=== PATIENT | female | born 1985 | race American Indian/Alaskan Native ===

== ENCOUNTER 2017-06-12 18:18 | Emergency (ER) | payer OTHER ==
[2017-06-12 18:32] VITALS: BMI 32.5
[2017-06-12 18:56] VITALS: BP 118/82; PULSE 81
[2017-06-12 18:57] VITALS: TEMP 98.3
--- NOTE | 2017-06-12 19:45 | PDOC ---
Attending Attestation - HPI HPI: 06/12/17 20:02 The patient is a 31 year old female, with a significant past medical history of asthma, who presents to the emergency department with, one day of chest pain. She reports both a cough and cold. She reports her left sternal border pain to worsen when she breathes and upon touch. Documentation prepared by Lance Arreaga, acting as medical technical writer for Jabier Buckner MD. <Lance Arreaga - Last Filed: 06/12/17 20:02> - Resident Resident Name: Figueroa Wilkins - ED Attending Attestation I have performed the following: I have examined & evaluated the patient, The case was reviewed & discussed with the resident, I agree w/resident's findings & plan, Exceptions are as noted - Physicial Exam PE: 06/12/17 20:22 Patient is awake and alert, with normal and stable vital signs, without evidence respiratory distress. nc, atr cta rrr + Reproducible left parasternal chest wall tenderness to palpation No lower extremity edema No rash - Medical Decision Making 06/12/17 20:23 Patient is a well-appearing 31-year-old female who presents to the ER with mild cough and shortness of breath associated with left-sided chest wall pain. In the ER, patient is afebrile, with normal stable vital signs. Physical evaluation reveals a patient with clear lungs and no evidence of respiratory distress with reproducible left parasternal tenderness to palpation. Patient is PERC negative. I do not suspect ACS at this time. We'll obtain chest x-ray to rule out pneumothorax versus infiltrate. We'll administer NSAIDs. Likely discharge. <Jabier Buckner - Last Filed: 06/12/17 20:24>
[2017-06-12] MEDS ORDERED: IBUPROFEN 400 MG TABLET (FP) PO ONE ×2 (19:49→20:02)
--- NOTE | 2017-06-12 19:59 | PDOC ---
History of Present Illness - General Chief Complaint: Chest Pain Stated Complaint: CHEST PAIN Time Seen by Provider: 06/12/17 19:30 History Source: Patient Exam Limitations: No Limitations - History of Present Illness Initial Comments: 06/12/17 19:51 Patient is a 31F with history of asthma here today complaining of chest pain for 24 hours. Patient reports having cough and cold for the past several days. The pain is worse with palpation and inspiration. It is located along the left sternal border. The patient is and gave 8 months ago, has not had any bloody discharge or breast discomfort. Is not taking any contraception or estrogen. No leg swelling. No recent surgery or trauma. No fevers, chills, nausea, vomiting, abdominal pain or pain with urination. Patient has had issues with hair thinning, has had her thyroid tested recently and it was normal. Past History - Past Medical History Allergies/Adverse Reactions: Allergies Allergy/AdvReac Type Severity Reaction Status Date / Time Penicillins Allergy Severe Hives Verified 06/12/17 18:32 Home Medications: Ambulatory Orders Fluticasone/Salmeterol [Advair 250-50 Diskus] 1 each IH DAILY 02/13/16 Asthma: Yes Cancer: No Cardiac Disorders: No COPD: No Diabetes: No HTN: No Seizures: No Thyroid Disease: No - Immunization History Immunization Up to Date: Yes - Suicide/Smoking/Psychosocial Hx Smoking Status: No Smoking History: Never smoked Have you smoked in the past 12 months: No Number of Cigarettes Smoked Daily: 0 Cigars Per Day: 0 'Breaking Loose' booklet given: 08/27/13 Hx Alcohol Use: No Drug/Substance Use Hx: No Substance Use Type: None Hx Substance Use Treatment: No Review of Systems - Review of Systems Comments:: 06/12/17 20:04 GENERAL/CONSTITUTIONAL: No fever or chills. No weakness. HEAD, EYES, EARS, NOSE AND THROAT: No change in vision. No sore throat. CARDIOVASCULAR: Positive for chest pain. Negative for shortness of breath. RESPIRATORY: No cough, wheezing, or hemoptysis. GASTROINTESTINAL: No nausea, vomiting, diarrhea or constipation. GENITOURINARY: No dysuria, frequency, or change in urination. SKIN: No rash NEUROLOGIC: No headache, vertigo, loss of consciousness, or change in strength/ sensation. ENDOCRINE: No increased thirst. No abnormal weight change ALLERGIC/IMMUNOLOGIC: No hives or skin allergy. *Physical Exam - Vital Signs Last Vital Signs Temp Pulse Resp BP Pulse Ox 98.3 F 81 18 118/82 100 06/12/17 18:57 06/12/17 18:55 06/12/17 18:55 06/12/17 18:55 06/12/17 18:55 - Physical Exam Comments: 06/12/17 20:05 GENERAL: Awake, alert, and fully oriented, in no acute distress HEAD: No signs of trauma, normocephalic, atraumatic, thinning hair EYES: PERRLA, EOMI, sclera anicteric, conjunctiva clear ENT: Auricles normal inspection, hearing grossly normal, nares patent, oropharynx clear without exudates. Moist mucosa LUNGS: No distress, speaks full sentences, clear to auscultation bilaterally L BREAST: No erythema, no mass, no discharge. CHEST: Tender to palpation along left sternal border, no rash. HEART: Regular rate and rhythm, normal S1 and S2, no murmurs, rubs or gallops, peripheral pulses normal and equal bilaterally. ABDOMEN: Soft, nontender, normoactive bowel sounds. No guarding, no rebound. No masses EXTREMITIES: Normal inspection, Normal range of motion, no edema. No clubbing or cyanosis. NEUROLOGICAL: Cranial nerves II through XII grossly intact. Normal speech, normal gait, no focal sensorimotor deficits SKIN: Warm, Dry, normal turgor, no rashes or lesions noted. ED Treatment Course - RADIOLOGY Radiology Studies Ordered: Category Date Time Status CHEST PA & LAT [RAD] Stat Radiology 06/12/17 19:48 Ordered Medical Decision Making - Medical Decision Making 06/12/17 20:08 31F here today with chest pain. Vital signs normal and stable. PERC negative. Chest pain is very atypical. Believe chest pain is secondary to coughing. Will evaluate with upreg, ekg, chest x-ray. EKG shows normal sinus rhythm, normal rate, normal axis, normal QTc, OH, QRS intervals. No st elevations/depressions. No t-wave abnormalities. 06/12/17 20:35 Laboratory Tests 06/12/17 19:59 Urine HCG, Qual Negative CXR shows no infiltrate, signs of fluid overload, or other acute cardiopulmonary process. 06/12/17 21:21 Discharged with PCP follow up. *DC/Admit/Observation/Transfer Diagnosis at time of Disposition: Atypical chest pain - Discharge Dispostion Disposition: HOME Condition at time of disposition: Good Admit: No - Referrals - Patient Instructions Printed Discharge Instructions: DI for Atypical Chest Pain Additional Instructions: Please return if you have any new, worsening or concerning symptoms. Please follow-up with your primary care physician next week. - Post Discharge Activity
--- NOTE | 2017-06-13 10:30 | EKG ---
Test Reason : Blood Pressure : / mmHG Vent. Rate : 074 BPM Atrial Rate : 074 BPM P-R Int : 152 ms QRS Dur : 074 ms QT Int : 380 ms P-R-T Axes : 003 059 041 degrees QTc Int : 421 ms NORMAL SINUS RHYTHM NORMAL ECG WHEN COMPARED WITH ECG OF 16-FEB-2015 02:32, NO SIGNIFICANT CHANGE WAS FOUND BASELINE ARTIFACT Confirmed by ELLI TALBERT MD ([id number]) on 06/13/2017 10:30:30 AM Referred By: Confirmed By:ELLI TALBERT MD
== END 2017-06-12 21:04 | disposition home or self-care (01) ==
LOC: JER 18:18
DX: R07.89 Other chest pain (principal); J45.909 Unspecified asthma, uncomplicated
CPT/HCPCS: 71020-TC; 84703; 93005; 93010; 99283-25

== ENCOUNTER 2017-10-17 15:58 | Emergency (ER) | payer OTHER ==
[2017-10-17 16:09] VITALS: BP 123/79; PULSE 83; TEMP 99; BMI 30.2
[2017-10-17] MEDS ORDERED: predniSONE 20 MG TABLET (UD) PO ONE (16:25)
[2017-10-17] MEDS ORDERED: ALBUTEROL SO4 2.5/IPRATROPIUM 0.5 INH SOL 3 ML VIAL.NEB. NEB ONE ×2 (16:26→16:30)
[2017-10-17] MEDS ORDERED: predniSONE 20 MG TABLET (UD) ONE (16:28)
--- NOTE | 2017-10-17 16:39 | PDOC ---
History of Present Illness - General Chief Complaint: RX Refill Stated Complaint: RX REFILLS Time Seen by Provider: 10/17/17 16:11 History Source: Patient - History of Present Illness Associated Symptoms: reports: cough. denies: fever/chills, loss of appetite, malaise, nausea/vomiting, shortness of breath, syncope Past History - Travel Close contact w/someone who was outside of country & ill: No - Past Medical History Allergies/Adverse Reactions: Allergies Allergy/AdvReac Type Severity Reaction Status Date / Time Penicillins Allergy Severe Hives Verified 10/17/17 16:09 Home Medications: Ambulatory Orders Benzonatate [Tessalon Pearls -] 100 mg PO TID #21 capsule 10/17/17 Fluticasone/Salmeterol [Advair 250-50 Diskus] 1 each IH BID 30 Days #1 blst.w.dev 10/17/17 Prednisone [Deltasone] 20 mg PO DAILY 4 Days #6 tablet 10/17/17 Asthma: Yes Cancer: No Cardiac Disorders: No COPD: No Diabetes: No HTN: No Seizures: No Thyroid Disease: No - Immunization History Immunization Up to Date: Yes - Suicide/Smoking/Psychosocial Hx Smoking Status: No Smoking History: Never smoked Have you smoked in the past 12 months: No Number of Cigarettes Smoked Daily: 0 Cigars Per Day: 0 'Breaking Loose' booklet given: 08/27/13 Hx Alcohol Use: No Drug/Substance Use Hx: No Substance Use Type: None Hx Substance Use Treatment: No Review of Systems - Review of Systems Is the patient limited Nepalese proficient: No Constitutional: No: Chills, Fever Respiratory: Yes: Cough, Wheezing, Productive cough. No: Shortness of Breath Cardiac (ROS): No: Chest Pain ABD/GI: No: Abdominal Distended, Nausea, Vomiting, Indigestion Musculoskeletal: No: Back Pain Neurological: No: Headache, Numbness, Paresthesia *Physical Exam - Vital Signs Last Vital Signs Temp Pulse Resp BP Pulse Ox 99.0 F 83 18 123/79 100 10/17/17 16:06 10/17/17 16:06 10/17/17 16:06 10/17/17 16:06 10/17/17 16:06 - Physical Exam General Appearance: Yes: Nourished, Appropriately Dressed Neck: positive: Supple Respiratory/Chest: positive: Wheezing Cardiovascular: positive: Regular Rhythm, Regular Rate, S1, S2 Gastrointestinal/Abdominal: positive: Normal Bowel Sounds, Soft Extremity: positive: Normal Capillary Refill Integumentary: positive: Normal Color Neurologic: positive: mapping editor II-XII NML intact, Fully Oriented, Alert ED Treatment Course - Medications Given in the ED: ED Medications Discontinued Medications Generic Name Dose Route Start Last Admin Trade Name Cydney PRN Reason Stop Dose Admin Albuterol/Ipratropium 1 amp 10/17/17 16:26 10/17/17 16:31 Duoneb - NEB 10/17/17 16:27 1 amp ONCE ONE Administration Prednisone 60 mg 10/17/17 16:25 10/17/17 16:29 Deltasone - PO 10/17/17 16:26 60 mg ONCE ONE Administration Medical Decision Making - Medical Decision Making 10/17/17 16:38 32y/o F with h/o asthma--denies ETT or prior hospitalization present with cough and wheezing X 3 days, requesting Rx for Advair exam consistent with wheeze and bilateral. Minimalize and prednisone 60 mg *DC/Admit/Observation/Transfer Diagnosis at time of Disposition: Asthma exacerbation Qualifiers: Asthma severity: mild Asthma persistence: unspecified Qualified Code(s): J45.901 - Unspecified asthma with (acute) exacerbation - Discharge Dispostion Disposition: HOME Condition at time of disposition: Stable Admit: No - Prescriptions Prescriptions: Benzonatate [Tessalon Pearls -] 100 mg PO TID #21 capsule Fluticasone/Salmeterol [Advair 250-50 Diskus] 1 each IH BID 30 Days #1 blst.w.dev Prednisone [Deltasone] 20 mg PO DAILY 4 Days #6 tablet - Referrals Referrals: Riley Brothers MD [Primary Care Provider] - - Patient Instructions Printed Discharge Instructions: Asthma -- Adult - Post Discharge Activity
== END 2017-10-17 16:57 | disposition home or self-care (01) ==
LOC: JERFT 15:58
PROC: 3E0F7GC Introduction of Other Therapeutic Substance into Respiratory Tract, Via Natural or Artificial Opening (ICD-10-PCS; principal; 2017-10-17)
DX: J45.901 Unspecified asthma with (acute) exacerbation (principal)
CPT/HCPCS: 94640; 99281-25; J7620

== ENCOUNTER 2017-10-24 19:53 | Emergency (ER) | payer OTHER ==
[2017-10-24 20:02] VITALS: BP 116/53; PULSE 95; TEMP 98.7; BMI 29.7
--- NOTE | 2017-10-24 20:45 | PDOC ---
History of Present Illness - General Chief Complaint: Cold Symptoms Stated Complaint: S.O.B Time Seen by Provider: 10/24/17 20:20 History Source: Patient Exam Limitations: No Limitations - History of Present Illness Initial Comments: 10/24/17 22:20 This is a 32-year-old woman past medical history of asthma who presents emergency departments with moist cough for the past one week. Patient states she was seen and evaluated here and given a refill on her prescriptions but has not improved after taking those medications. She has not seen her primary doctor for this complaint. She denies any fevers, chills, shortness of breath, nausea, vomiting, chest pain. Her son is being evaluated for similar symptoms at this time. Past History - Past Medical History Allergies/Adverse Reactions: Allergies Allergy/AdvReac Type Severity Reaction Status Date / Time Penicillins Allergy Severe Hives Verified 10/24/17 20:00 Home Medications: Ambulatory Orders Albuterol 0.083% Nebulizer Rukhsana [Ventolin 0.083% Nebulizer Soln -] 1 neb NEB Q4H #90 vial 10/24/17 Salmeterol/Fluticasone [Advair 100Mcg/50Mcg -] 1 inh PO BID 10/24/17 Asthma: Yes Cancer: No Cardiac Disorders: No COPD: No Diabetes: No HTN: No Seizures: No Thyroid Disease: No - Immunization History Immunization Up to Date: Yes - Suicide/Smoking/Psychosocial Hx Smoking Status: No Smoking History: Never smoked Have you smoked in the past 12 months: No Number of Cigarettes Smoked Daily: 0 Cigars Per Day: 0 'Breaking Loose' booklet given: 08/27/13 Hx Alcohol Use: No Drug/Substance Use Hx: No Substance Use Type: None Hx Substance Use Treatment: No Respiratory Specific PMHX - Complaint Specific PMHX Bronchitis: Yes Pulmonary Embolus: No TB (Tuberculosis): No Review of Systems - Review of Systems Able to Perform ROS?: Yes Is the patient limited Turkmen proficient: No Constitutional: No: Symptoms Reported HEENTM: No: Symptoms Reported Respiratory: Yes: See HPI Cardiac (ROS): No: Symptoms Reported ABD/GI: No: Symptoms Reported : No: Symptoms Reported Musculoskeletal: No: Symptoms Reported Integumentary: No: Symptoms Reported Neurological: No: Symptoms reported Endocrine: No: Symptoms Reported Hematologic/Lymphatic: No: Symptoms Reported *Physical Exam - Vital Signs Last Vital Signs Temp Pulse Resp BP Pulse Ox 98.7 F 95 H 20 116/53 100 10/24/17 20:00 10/24/17 20:00 10/24/17 20:00 10/24/17 20:00 10/24/17 20:00 - Physical Exam General Appearance: Yes: Appropriately Dressed. No: Apparent Distress HEENT: positive: Normal ENT Inspection Neck: positive: Trachea midline, Supple Respiratory/Chest: positive: Lungs Clear, Normal Breath Sounds. negative: Respiratory Distress, Accessory Muscle Use Cardiovascular: positive: Regular Rhythm, Regular Rate. negative: Murmur Gastrointestinal/Abdominal: positive: Normal Bowel Sounds, Soft. negative: Tender Musculoskeletal: positive: Normal Inspection. negative: CVA Tenderness Extremity: positive: Normal Inspection Integumentary: positive: Normal Color, Dry, Warm Neurologic: positive: Alert, Normal Response Medical Decision Making - Medical Decision Making 10/24/17 22:00 A/P: 32-year-old female history of asthma presents with moist cough for one week Respirations even and unlabored. Speaking full sentences. Lungs clear to auscultation bilaterally Patient is requesting chest x-ray at this time. I will give patient DuoNeb's 3 and will get a chest x-ray. 10/24/17 22:21 Wet read of chest x-ray by me: Angles clear. Cardiomegaly present. No focal infiltrates or consolidations noted. No significant change from chest x-ray done on 06/12/17 I discussed the physical exam findings, ancillary test results and final diagnoses with the patient. I answered all of the patient's questions. The patient was satisfied with the care received and felt comfortable with the discharge plan and treatment plan. The patient will call her doctor within 96 hours to arrange follow-up and will return to the Emergency Department with any new, persistent or worsening symptoms. *DC/Admit/Observation/Transfer Diagnosis at time of Disposition: Cough - Discharge Dispostion Disposition: HOME Condition at time of disposition: Fair Decision to Admit order: No - Prescriptions Prescriptions: Albuterol 0.083% Nebulizer Rukhsana [Ventolin 0.083% Nebulizer Soln -] 1 neb NEB Q4H #90 vial - Referrals Referrals: Riley Brothers MD [Primary Care Provider] - - Patient Instructions Additional Instructions: Rest, drink lots of fluids: Teas, water, soups, Pedialyte Saltwater gargles Steamy showers/seem to face break up mucus Avoid contact with others until fevers and cough resolved Lots of handwashing and good hygiene Continue [id number] medications for symptomatic relief Tylenol or Motrin for fever and pain Followup with private physician in one to 2 days as needed Return to emergency department for worsened symptoms, fevers, dehydration - Post Discharge Activity
[2017-10-24] MEDS: ALBUTEROL SO4 2.5/IPRATROPIUM 0.5 INH SOL 3 ML VIAL.NEB. NEB SCH ×4 (20:56→21:45)
[2017-10-24] MEDS ORDERED: ALBUTEROL SO4 2.5/IPRATROPIUM 0.5 INH SOL 3 ML VIAL.NEB. NEB ONE (21:42)
== END 2017-10-24 22:09 | disposition home or self-care (01) ==
LOC: JERFT 19:53
PROC: 3E0F7GC Introduction of Other Therapeutic Substance into Respiratory Tract, Via Natural or Artificial Opening (ICD-10-PCS; principal; 2017-10-24)
PROC: 3E0F7GC Introduction of Other Therapeutic Substance into Respiratory Tract, Via Natural or Artificial Opening (ICD-10-PCS; 2017-10-24)
PROC: 3E0F7GC Introduction of Other Therapeutic Substance into Respiratory Tract, Via Natural or Artificial Opening (ICD-10-PCS; 2017-10-24)
PROC: 3E0F7GC Introduction of Other Therapeutic Substance into Respiratory Tract, Via Natural or Artificial Opening (ICD-10-PCS; 2017-10-24)
DX: J45.909 Unspecified asthma, uncomplicated (principal)
CPT/HCPCS: 71046-TC-FY; 84703; 94640; 99281-25; J7620

== ENCOUNTER 2017-11-10 19:59 | Emergency (ER) | payer OTHER ==
--- NOTE | 2017-11-10 20:24 | PDOC ---
Rapid Medical Evaluation Time Seen by Provider: 11/10/17 20:22 Medical Evaluation: Allergies Allergy/AdvReac Type Severity Reaction Status Date / Time Penicillins Allergy Severe Hives Verified 11/10/17 20:22 11/10/17 20:22 I have performed a brief in-person evaluation of the patient. The patient presents with a chief complaint of : pain in both eyes today. States seen here for the same in the past will not elaborate other than saying, it hurts to see Pertinent physical exam findings. NAD HEENT: no swelling of lids, will not open eyes unlabored breathing I have ordered the following none This patient will proceed to the ED for further evaluation.
[2017-11-10 20:28] VITALS: BP 128/71; PULSE 100; TEMP 98.4; BMI 29.2
--- NOTE | 2017-11-10 21:14 | PDOC ---
History of Present Illness - General Chief Complaint: Eye Problem Stated Complaint: EYE PROBLEM Time Seen by Provider: 11/10/17 20:22 - History of Present Illness Initial Comments: 32-year-old female with past medical history significant for asthma presents for evaluation of bilateral eye pain and decreased vision since earlier this afternoon around 3 PM. She has problems with light in keeping her eyes open she requires sunglasses. This is happened to her once in the past and she was given a drop which she cannot remember. 11/10/17 21:12 Past History - Past Medical History Allergies/Adverse Reactions: Allergies Allergy/AdvReac Type Severity Reaction Status Date / Time Penicillins Allergy Severe Hives Verified 11/10/17 20:22 Home Medications: Ambulatory Orders Prednisolone 1% Ophthalmic [Pred Forte 1% -] 1 drop OD QID #1 bottle 11/10/17 Asthma: Yes Cancer: No Cardiac Disorders: No COPD: No Diabetes: No HTN: No Seizures: No Thyroid Disease: No - Immunization History Immunization Up to Date: Yes - Suicide/Smoking/Psychosocial Hx Smoking Status: No Smoking History: Never smoked Have you smoked in the past 12 months: No Number of Cigarettes Smoked Daily: 0 Cigars Per Day: 0 Information on smoking cessation initiated: No 'Breaking Loose' booklet given: 08/27/13 Hx Alcohol Use: No Drug/Substance Use Hx: No Substance Use Type: None Hx Substance Use Treatment: No Review of Systems - Review of Systems HEENTM: Yes: See HPI, Eye Pain, Blurred Vision, Tearing All Other Systems: Reviewed and Negative *Physical Exam - Vital Signs Last Vital Signs Temp Pulse Resp BP Pulse Ox 98.4 F 100 H 18 128/71 99 11/10/17 20:22 11/10/17 20:22 11/10/17 20:22 11/10/17 20:22 11/10/17 20:22 - Physical Exam Comments: Bilateral external ocular muscles are intact. Pupils are equal round and reactive. There is no conjunctival injection. There is no tenderness to her eyeball. She is photophobic. 11/10/17 21:12 Medical Decision Making - Medical Decision Making I've discussed this case with ophthalmology on-call Dr Lackey, according to my evaluation and presentation the most likely diagnosis is iritis. I prescribed her Pred forte drops to be used 4 times a day as well as close follow-up with ophthalmology. 11/10/17 21:13 *DC/Admit/Observation/Transfer Diagnosis at time of Disposition: Iritis - Discharge Dispostion Disposition: HOME Condition at time of disposition: Stable Decision to Admit order: No - Prescriptions Prescriptions: Prednisolone 1% Ophthalmic [Pred Forte 1% -] 1 drop OD QID #1 bottle - Referrals Referrals: Riley Brothers MD [Primary Care Provider] - Todd Lackey MD [Staff Physician] - - Patient Instructions Additional Instructions: Your examination sounds to be an iritis. His and irritation of the iris of your eyes. I've placed you on steroid drops which should be used 4 times a day. It's very important few to follow-up with the utilization reviewer in 1-2 days. I've discussed your issue with him and he will see you in his office. Return to the emergency room if symptoms worsen or go unresolved prior your follow-up. - Post Discharge Activity
== END 2017-11-10 21:16 | disposition home or self-care (01) ==
LOC: JERFT 19:59
DX: H20.9 Unspecified iridocyclitis (principal)
CPT/HCPCS: 99281-25

== ENCOUNTER 2018-08-19 17:20 | Emergency (ER) | payer OTHER ==
--- NOTE | 2018-08-19 23:27 | PDOC ---
History of Present Illness - General Chief Complaint: Headache Stated Complaint: headache Time Seen by Provider: 08/19/18 23:26 - History of Present Illness Initial Comments: 33yo F with PMH of asthma presenting with bilateral eye pain. Patient states that her eye pain was sudden in onset, rated 10/10 and described as "burning." She endorses photophobia. Patient has had this before: she states she was here three months ago and was given eye drops which improved her symptoms. She did not see a eye doctor. Patient endorses poor vision and wears glasses at baseline , but does not know what her visual acuity is. Her children were sick with the flu two weeks ago. No recent travel. No fevers, chills, chest pain, or shortness of breath. PCP: Dr. Pickett Past History - Past Medical History Allergies/Adverse Reactions: Allergies Allergy/AdvReac Type Severity Reaction Status Date / Time Penicillins Allergy Severe Hives Verified 08/19/18 23:26 Home Medications: Ambulatory Orders Ketotifen Fumarate [Allergy Eye Drops] 1 drop OU BID #1 bottle 08/20/18 Asthma: Yes Cancer: No Cardiac Disorders: No COPD: No Diabetes: No HTN: No Seizures: No Thyroid Disease: No - Immunization History Immunization Up to Date: Yes - Suicide/Smoking/Psychosocial Hx Smoking Status: No Smoking History: Never smoked Have you smoked in the past 12 months: No Number of Cigarettes Smoked Daily: 0 Cigars Per Day: 0 'Breaking Loose' booklet given: 08/27/13 Hx Alcohol Use: No Drug/Substance Use Hx: No Substance Use Type: None Hx Substance Use Treatment: No Review of Systems - Review of Systems Comments:: Constitutional: no fever, no chills HEENT: no throat pain, +eye pain Cardiovascular: no chest pain, no palpitations Respiratory: no cough, no shortness of breath Gastrointestinal: no abdominal pain, no nausea Genitourinary: no dysuria, no frequency Musculoskeletal: no myalgia, no arthralgia Skin: no rash, no itching Neurologic: +headache, no dizziness *Physical Exam - Physical Exam Comments: General: Awake, alert, and fully oriented, in no acute distress Head: No signs of trauma Eyes: EOMI, sclera anicteric, OD 20/30, OS 20/30, PERRL, Visual darnell intact, Conjunctiva and sclera white and quiet, No Cells and Flare ENT: Moist mucus membranes Neck: Normal ROM, supple Lungs: Lungs clear, Normal breath sounds Cardio: Regular rhythm, S1 and S2 present Abdomen: Soft, nontender. No guarding, no rebound, no masses Extremities: Normal range of motion, Distal pulses present SKIN: Warm, Dry, normal turgor Neurologic: Cranial nerves II through XII grossly intact. Normal speech Medical Decision Making - Medical Decision Making 33yo F with PMH of asthma presenting with bilateral eye pain. Patient states she received "numbing drops" and has had drops of Ketotifen Fumarate which relieved her pain somewhat, but the pain is still rated 10/10 Tylenol and motrin ordered for pain Pending slit lamp exam 08/20/18 00:15 Benadryl given Patient pain improved, now 1/10. Likely allergic reaction 08/20/18 01:37 Antihistamine drops sent to pharmacy. Patient discharged *DC/Admit/Observation/Transfer Diagnosis at time of Disposition: Discomfort of both eyes - Discharge Dispostion Disposition: HOME Condition at time of disposition: Stable - Prescriptions Prescriptions: Ketotifen Fumarate [Allergy Eye Drops] 1 drop OU BID #1 bottle - Referrals Referrals: Cristiano Lynn MD [Staff Physician] - - Patient Instructions Printed Discharge Instructions: DI for Eye Pain Additional Instructions: You came into the ED for eye pain. We performed an exam and your presentation is consistent with inflammation, possibly due to an allergic reaction. Eye drops sent to your pharmacy. Take as instructed. Take [id number] benadryl, 25 to 50 mg every 4 to 8 hours, as needed to relieve your symptoms. We have referred you an nail specialist. Call and make an appointment to see them next week. Immediate medical attention is required if you have: any change in vision; feeling there is something in your eye, ulcers or open cuts on your eyelids; signs of infection including fever and chills; or any new or concerning symptoms. If you think you are having an emergency, call for emergency medical services or present to the emergency department right away. - Post Discharge Activity
[2018-08-19 23:28] VITALS: BP 125/71; PULSE 69; TEMP 98.6; BMI 30.5
[2018-08-20] MEDS ORDERED: ACETAMINOPHEN 325 MG TABLET (FP) PO ONE (00:03)
[2018-08-20] MEDS ORDERED: IBUPROFEN 600 MG TABLET (FP) PO ONE ×2 (00:18→01:03)
--- NOTE | 2018-08-20 00:18 | PDOC ---
Attending Attestation - Resident Resident Name: Elayne ArellanoRadha - ED Attending Attestation I have performed the following: I have examined & evaluated the patient, The case was reviewed & discussed with the resident, I agree w/resident's findings & plan, Exceptions are as noted - HPI HPI: 08/20/18 00:16 33y F hx of asthma presents with b/l eye pain that is burning in nature. Patient states that she was fine this morning sometime in the afternoon she was home cleaning her kitchen when she felt some burning in both of her eyes. The patient versus some tearing denies any pain in her eye. The patient denies any fever, chills, nausea, vomiting, double vision, headache, neck pain. Patient notes she has had this several times in the past. Patient actually had the medications that were prescribed and notes that the antihistamine drops were more effective than the prednisone when she was diagnosed with an iritis. She never followed up with any other doctors regarding his problems and they have resolved. She notes that she should her a does wear strong perfume and sometimes she has some eye tearing and sneezing because of that. No known ALLERGIES wears contacts EYE EXAMINATION: Visual acuity: 20/30 in the left eye, 20/30 in the right eye, near, uncorrected The lid and lashes are normal. Extraocular movements are intact. The conjunctiva is clear without erythema, injection, or discharge The pupils are equal, round and reactive to light. On slitlamp, there was no signs of cell/flare b/l. Suspect irritation of unknown etiology. will treat pt with antihistamine gtt
[2018-08-20] MEDS ORDERED: diphenhydrAMINE HCL 12.5 MG/5 ML UNIT-DOSE CUPS PO ONE (00:52)
[2018-08-20] MEDS ORDERED: ACETAMINOPHEN 325 MG TABLET (FP) ONE (01:03)
[2018-08-20] MEDS ORDERED: diphenhydrAMINE HCL 25 MG CAPSULE (FP) PO ONE (01:04)
== END 2018-08-20 01:54 | disposition home or self-care (01) ==
LOC: JER 17:20
PROC: 4A07X0Z Measurement of Visual Acuity, External Approach (ICD-10-PCS; principal; 2018-08-19)
DX: H57.13 Ocular pain, bilateral (principal); H53.143 Visual discomfort, bilateral; J45.909 Unspecified asthma, uncomplicated
CPT/HCPCS: 99173; 99281-25

== ENCOUNTER 2018-11-07 22:14 | Emergency (ER) | payer OTHER ==
[2018-11-07 22:22] VITALS: BP 119/68; PULSE 84; TEMP 98.2; BMI 33.1
[2018-11-08] MEDS ORDERED: ALBUTEROL SO4 2.5/IPRATROPIUM 0.5 INH SOL 3 ML VIAL.NEB. NEB ONE ×2 (00:39→01:11)
[2018-11-08] MEDS ORDERED: MAGNESIUM SULF 50% (8.12 MEQ/2 ML-1 GM VIAL) IVPB ONE (00:43)
--- NOTE | 2018-11-08 00:43 | PDOC ---
History of Present Illness - General Chief Complaint: Asthma Stated Complaint: ASTHMATIC Time Seen by Provider: 11/08/18 00:34 - History of Present Illness Initial Comments: 11/08/18 00:41 CHIEF COMPLAINT: SOB, cough HISTORY OF PRESENT ILLNESS: 33 yo F with hx of asthma presents to ED with cough x 6 days. Patient reports that she went to [facility] twice in the last 6 days and has not had any improvement despite being treated with azithromycin, benzonatate, prednisone, and "generic advair." No recent travel or sick contacts. PAST MEDICAL HISTORY: Denies past medical history FAMILY HISTORY: Denies SOCIAL HISTORY: Denies tobacco, alcohol, illicit drug use. SURGICAL HISTORY: Denies ALLERGIES: PCN REVIEW OF SYSTEMS General/Constitutional: Denies fever or chills. Denies weakness, weight change. HEENT: Denies change in vision. Denies ear pain or discharge. Denies sore throat. Cardiovascular: Denies chest pain or shortness of breath. Respiratory: Cough x 6 days. Gastrointestinal: Denies nausea, vomiting, diarrhea or constipation. Denies rectal bleeding. Genitourinary: Denies dysuria, frequency, or change in urination. Musculoskeletal: Denies joint or muscle swelling or pain. Denies neck or back pain. Skin and breasts: Denies rash or easy bruising. Neurologic: Denies headache, vertigo, loss of consciousness, or loss of sensation. PHYSICAL EXAM General Appearance: Well-appearing, appropriately dressed. No apparent distress , no intoxication. HEENT: EOMI, PERRLA, normal ENT inspection, normal voice, TMs normal, pharynx normal. No conjunctival pallor. No photophobia, scleral icterus. Neck: Supple. Trachea midline. No tenderness, rigidity, carotid bruit, stridor , lymphadenopathy, or thyromegaly. Respiratory/Chest: Persistent dry cough and bronchospasm. Inspiratory wheeze and expiratory rhonchi to RLL. No shortness of breath, chest tenderness, respiratory distress, accessory muscle Cardiovascular: RRR. S1, S2. No JVD, murmur, bradycardia, tachycardia. Vascular Pulses: Dorsalis-Pedis (R): 2+, Dorsalis-Pedis (L): 2+ Gastrointestinal/Abdominal: Normal bowel sounds. Abdomen soft, non-distended. No tenderness or rebound tenderness. No organomegaly, pulsatile mass, guarding , hernia, hepatomegaly, splenomegaly. Lymphatic: No adenopathy, tenderness. Musculoskeletal/Extremities: Normal inspection. FROM of all extremities, normal capillary refill. Pelvis Stable. No CVA tenderness. No tenderness to extremities, pedal edema, swelling, erythema or deformity. Integumentary: Appropriate color, dry, warm. No cyanosis, erythema, jaundice or rash Neurologic: agronomy manager II-XII intact. Fully oriented, alert. Appropriate mood/affect. Motor strength 5/5. No appreciable EOM palsy, facial droop or sensory deficit. Past History - Past Medical History Allergies/Adverse Reactions: Allergies Allergy/AdvReac Type Severity Reaction Status Date / Time Penicillins Allergy Severe Hives Verified 08/19/18 23:26 Home Medications: Ambulatory Orders Ketotifen Fumarate [Allergy Eye Drops] 1 drop OU BID #1 bottle 08/20/18 levoFLOXacin [Levaquin] 750 mg PO DAILY #5 tab 11/08/18 Asthma: Yes Cancer: No Cardiac Disorders: No COPD: No Diabetes: No HTN: No Seizures: No Thyroid Disease: No - Immunization History Immunization Up to Date: Yes - Suicide/Smoking/Psychosocial Hx Smoking Status: No Smoking History: Never smoked Have you smoked in the past 12 months: No Number of Cigarettes Smoked Daily: 0 Cigars Per Day: 0 Information on smoking cessation initiated: No 'Breaking Loose' booklet given: 08/27/13 Hx Alcohol Use: No Drug/Substance Use Hx: No Substance Use Type: None Hx Substance Use Treatment: No Respiratory Specific PMHX - Complaint Specific PMHX Bronchitis: Yes Pulmonary Embolus: No TB (Tuberculosis): No *Physical Exam - Vital Signs Last Vital Signs Temp Pulse Resp BP Pulse Ox 98.2 F 84 20 119/68 98 11/07/18 22:18 11/07/18 22:18 11/07/18 22:18 11/07/18 22:18 11/07/18 22:18 ED Treatment Course - LABORATORY CBC & Chemistry Diagram: 11/08/18 01:00 11/08/18 01:00 - RADIOLOGY Radiology Studies Ordered: Category Date Time Status CHEST PA & LAT [RAD] Stat Radiology 11/08/18 00:39 Ordered Medical Decision Making - Medical Decision Making 11/08/18 00:43 33 yo F with hx of asthma presents to ED with cough x 6 days. -labs, cxr -duoneb, mag *DC/Admit/Observation/Transfer Diagnosis at time of Disposition: Asthma exacerbation Qualifiers: Asthma severity: moderate Asthma persistence: unspecified Qualified Code(s): J45.901 - Unspecified asthma with (acute) exacerbation - Discharge Dispostion Disposition: HOME Condition at time of disposition: Stable Decision to Admit order: No - Prescriptions Prescriptions: levoFLOXacin [Levaquin] 750 mg PO DAILY #5 tab - Referrals Referrals: Riley Brothers MD [Primary Care Provider] - - Patient Instructions Printed Discharge Instructions: DI for Pneumonia -- Adult, DI for Asthma -- Adult Additional Instructions: Please follow up with your primary care doctor for continued management of your asthma. If you develop any new or worsening symptoms, please return to the ER. - Post Discharge Activity
[2018-11-08] MEDS ORDERED: DEXAMETHASONE SOD PHOSPHATE 10 MG/1 ML VIAL IVPUSH ONE (00:44)
--- NOTE | 2018-11-08 00:44 | PDOC ---
*Physical Exam - Vital Signs Last Vital Signs Temp Pulse Resp BP Pulse Ox 98.2 F 84 20 119/68 98 11/07/18 22:18 11/07/18 22:18 11/07/18 22:18 11/07/18 22:18 11/07/18 22:18 ED Treatment Course - LABORATORY CBC & Chemistry Diagram: 11/08/18 01:00 11/08/18 01:00 Medical Decision Making - Medical Decision Making 11/08/18 00:43 Patient seen by the advanced practice provider under my direct supervision. Ancillary testing reviewed as necessary. I agree with plan as outlined by the advanced practice provider. *DC/Admit/Observation/Transfer Diagnosis at time of Disposition: Asthma exacerbation - Referrals Referrals: Riley Brothers MD [Primary Care Provider] - - Patient Instructions - Post Discharge Activity
[2018-11-08] MEDS ORDERED: DEXAMETHASONE SOD PHOSPHATE 10 MG/1 ML VIAL ONE (01:11)
[2018-11-08] MEDS ORDERED: MAGNESIUM 1GM/D5W - 2 GM/200 ML IVPB IVPB ONE (01:12)
[2018-11-08 01:28] LABS: BASO % 0.2 % (0-2.0); HEMATOCRIT 38.9 % (32.4-45.2); HEMOGLOBIN 12.6 GM/dL (10.7-15.3); LYMPH % 10.2 % (8-40); MCHC 32.3 g/dl (32.0-36.0); MEAN CELL VOLUME 83.4 fl (80-96); MEAN PLT VOLUME 9.2 fl (7.5-11.1); MONO % 4.5 % (3.8-10.2); NEUT % 85.1 % (42.8-82.8); PLATELET COUNT 274 K/MM3 (134-434); RBC 4.67 M/mm3 (3.60-5.2); RDW 14.8 % (11.6-15.6)
[2018-11-08 01:48] LABS: ALBUMIN 3.6 g/dl (3.4-5.0); BILIRUBIN,TOTAL 0.2 mg/dL (0.2-1); CALCIUM 8.8 mg/dL (8.5-10.1); CREATININE 0.7 mg/dL (0.55-1.3); POTASSIUM 3.6 mmol/L (3.5-5.1); TOT PROT 7.3 g/dl (6.4-8.2)
== END 2018-11-08 04:05 | disposition home or self-care (01) ==
LOC: JER 22:14
PROC: 3E0F7GC Introduction of Other Therapeutic Substance into Respiratory Tract, Via Natural or Artificial Opening (ICD-10-PCS; principal; 2018-11-07)
PROC: 3E0333Z Introduction of Anti-inflammatory into Peripheral Vein, Percutaneous Approach (ICD-10-PCS; 2018-11-07)
PROC: 3E033GC Introduction of Other Therapeutic Substance into Peripheral Vein, Percutaneous Approach (ICD-10-PCS; 2018-11-07)
DX: J45.901 Unspecified asthma with (acute) exacerbation (principal)
CPT/HCPCS: 36415; 71046-TC-FY; 80053; 85025; 94640; 96374; 96375; 99281-25; J1100

== ENCOUNTER 2019-05-20 01:41 | Emergency (ER) | payer OTHER ==
[2019-05-20 02:06] VITALS: TEMP 98.9; BMI 32.0
--- NOTE | 2019-05-20 02:18 | PDOC ---
History of Present Illness - General Chief Complaint: Nausea Stated Complaint: NAUSEA/4 WKS Time Seen by Provider: 05/20/19 02:10 Past History - Past Medical History Allergies/Adverse Reactions: Allergies Allergy/AdvReac Type Severity Reaction Status Date / Time Penicillins Allergy Severe Hives Verified 05/20/19 02:01 Home Medications: Ambulatory Orders Ketotifen Fumarate [Allergy Eye Drops] 1 drop OU BID #1 bottle 08/20/18 levoFLOXacin [Levaquin] 750 mg PO DAILY #5 tab 11/08/18 Doxylamine Succinate [Unisom] 25 mg PO ONCE 10 Days #10 tablet 05/20/19 Pyridoxine HCl (Vitamin B6) [Pyridoxine HCl] 25 mg PO Q8H PRN 7 Days #21 tablet 05/20/19 Asthma: Yes Cancer: No Cardiac Disorders: No COPD: No Diabetes: No HTN: No Seizures: No Thyroid Disease: No - Immunization History Immunization Up to Date: Yes - Psycho Social/Smoking Cessation Hx Smoking Status: No Smoking History: Never smoked Have you smoked in the past 12 months: No Number of Cigarettes Smoked Daily: 0 Cigars Per Day: 0 Information on smoking cessation initiated: No 'Breaking Loose' booklet given: 08/27/13 Hx Alcohol Use: No Drug/Substance Use Hx: No Substance Use Type: None Hx Substance Use Treatment: No Review of Systems - Review of Systems Constitutional: No: Chills HEENTM: No: Eye Pain, Blurred Vision Respiratory: No: Cough, Wheezing Cardiac (ROS): Yes: Lightheadedness. No: Chest Pain ABD/GI: Yes: Nausea, Vomiting : No: Burning, Dysuria Musculoskeletal: No: Back Pain, Joint Pain Integumentary: No: Bruising, Change in Color Neurological: No: Headache Hematologic/Lymphatic: No: Blood Clots, Easy Bleeding *Physical Exam - Vital Signs Last Vital Signs Temp Pulse Resp BP Pulse Ox 98.9 F 73 20 122/77 97 05/20/19 02:01 05/20/19 02:01 05/20/19 02:01 05/20/19 02:01 05/20/19 02:01 - Physical Exam 05/20/19 04:07 PE: GENERAL: Awake, alert, and fully oriented, in no acute distress HEAD: No signs of trauma, normocephalic, atraumatic EYES: PERRLA, EOMI, sclera anicteric, conjunctiva clear ENT: Auricles normal inspection, hearing grossly normal, nares patent, oropharynx clear without exudates. Moist mucosa NECK: Normal ROM, supple, no lymphadenopathy, JVD, or masses LUNGS: No distress, speaks full sentences, clear to auscultation bilaterally HEART: Regular rate and rhythm, normal S1 and S2, no murmurs, rubs or gallops, peripheral pulses normal and equal bilaterally. ABDOMEN: Soft, nontender, normoactive bowel sounds. No guarding, no rebound. No masses EXTREMITIES : Normal inspection, Normal range of motion, no edema. No clubbing or cyanosis NEUROLOGICAL: Cranial nerves II through XII grossly intact. Normal speech, normal gait, no focal sensorimotor deficits SKIN: Warm, Dry, normal turgor, no rashes or lesions noted ED Treatment Course - LABORATORY CBC & Chemistry Diagram: 05/20/19 03:15 05/20/19 03:15 Medical Decision Making - Medical Decision Making 05/20/19 04:12 33 y/o F nausea and vomiting x4 days 12 episodes of emesis NBNB prompted to come in due to lightheadedness on exertion cbc, cmp. ua,urine culture all unremarkable Meds: reglan, IV NS 1L Discharge - Discharge Information Problems reviewed: Yes Clinical Impression/Diagnosis: Hyperemesis Qualifiers: Vomiting type: unspecified Nausea presence: with nausea Qualified Code(s): R11.2 - Nausea with vomiting, unspecified Condition: Stable Disposition: HOME - Admission No - Additional Discharge Information Prescriptions: Doxylamine Succinate [Unisom] 25 mg PO ONCE 10 Days #10 tablet Pyridoxine HCl (Vitamin B6) [Pyridoxine HCl] 25 mg PO Q8H PRN 7 Days #21 tablet PRN Reason: HYPEREMESIS - Follow up/Referral Referrals: Riley Brothers MD [Primary Care Provider] - - Patient Discharge Instructions Patient Printed Discharge Instructions: Hyperemesis Gravidarum Additional Instructions: Follow up with your GRIP ASSEMBLER on Wednesday as scheduled. Follow discharge instructions and take medications as prescribed. if doxylamine makes you very drowsy you can split in half and take half tablet every 8 hrs - Post Discharge Activity
[2019-05-20] MEDS ORDERED: METOCLOPRAMIDE HCL INJECTION 10 MG/2 ML VIAL IVPUSH ONE (02:43)
[2019-05-20] MEDS ORDERED: SODIUM CHLORIDE 0.9% 500 ML INFUS.BAG IV ONE (02:43)
[2019-05-20] MEDS ORDERED: METOCLOPRAMIDE HCL INJECTION 10 MG/2 ML VIAL ONE (03:15)
[2019-05-20 03:23] LABS: BASO % 0.9 % (0-2.0); EOS % 2.7 % (0-4.5); HEMATOCRIT 41.5 % (32.4-45.2); LYMPH % 22.7 % (8-40); MCH 27.9 pg (25.7-33.7); MCHC 33.6 g/dl (32.0-36.0); MEAN CELL VOLUME 83.1 fl (80-96); MEAN PLT VOLUME 9.2 fl (7.5-11.1); MONO % 5.2 % (3.8-10.2); NEUT % 68.5 % (42.8-82.8); PLATELET COUNT 255 K/MM3 (134-434); RDW 14.6 % (11.6-15.6); WHITE BLOOD COUNT 14.1 K/mm3 (4.0-10.0)
[2019-05-20 03:50] LABS: URINE APPEARANCE CLEAR; URINE BILIRUBIN NEGATIVE (NEGATIVE); URINE COLOR YELLOW; URINE GLUCOSE (UA) NEGATIVE (NEGATIVE); URINE KETONE NEGATIVE (NEGATIVE); URINE LEUK ESTERASE NEGATIVE (NEGATIVE); URINE NITRITE NEGATIVE (NEGATIVE); URINE PROTEIN NEGATIVE (NEGATIVE); URINE UROBILINOGEN 0.2 mg/dL (0.2-1.0)
[2019-05-20 03:52] LABS: ALBUMIN 3.8 g/dl (3.4-5.0); BILIRUBIN,TOTAL 0.3 mg/dL (0.2-1); BLOOD UREA NITROGEN 13.1 mg/dL (7-18); CALCIUM 9.5 mg/dL (8.5-10.1); CREATININE 0.7 mg/dL (0.55-1.3); POTASSIUM 4.1 mmol/L (3.5-5.1); TOT PROT 7.7 g/dl (6.4-8.2)
[2019-05-20 05:14] VITALS: BP 129/82; PULSE 76
== END 2019-05-20 05:09 | disposition home or self-care (01) ==
LOC: JER 01:41
PROC: 3E033GC Introduction of Other Therapeutic Substance into Peripheral Vein, Percutaneous Approach (ICD-10-PCS; principal; 2019-05-20)
DX: O26.891 Other specified pregnancy related conditions, first trimester (principal); O21.0 Mild hyperemesis gravidarum; Z3A.01 Less than 8 weeks gestation of pregnancy; Z88.0 Allergy status to penicillin
CPT/HCPCS: 36415; 80053; 81003; 84702; 85025; 87086; 96374; 99283-25

== ENCOUNTER 2019-06-15 23:08 | Emergency (ER) | payer OTHER ==
[2019-06-15 23:22] VITALS: BMI 31.2
--- NOTE | 2019-06-16 01:12 | PDOC ---
History of Present Illness - General Chief Complaint: Vaginal Bleeding Stated Complaint: 12 WKS /VAGINAL BLEEDING Time Seen by Provider: 06/16/19 01:06 Past History - Past Medical History Allergies/Adverse Reactions: Allergies Allergy/AdvReac Type Severity Reaction Status Date / Time Penicillins Allergy Severe Hives Verified 05/20/19 02:01 Home Medications: Ambulatory Orders Ketotifen Fumarate [Allergy Eye Drops] 1 drop OU BID #1 bottle 08/20/18 levoFLOXacin [Levaquin] 750 mg PO DAILY #5 tab 11/08/18 Doxylamine Succinate [Unisom] 25 mg PO ONCE 10 Days #10 tablet 05/20/19 Pyridoxine HCl (Vitamin B6) [Pyridoxine HCl] 25 mg PO Q8H PRN 7 Days #21 tablet 05/20/19 Asthma: Yes Cancer: No Cardiac Disorders: No COPD: No Diabetes: No HTN: No Seizures: No Thyroid Disease: No - Immunization History Immunization Up to Date: Yes - Psycho Social/Smoking Cessation Hx Smoking Status: No Smoking History: Never smoked Have you smoked in the past 12 months: No Number of Cigarettes Smoked Daily: 0 Cigars Per Day: 0 'Breaking Loose' booklet given: 08/27/13 Hx Alcohol Use: No Drug/Substance Use Hx: No Substance Use Type: None Hx Substance Use Treatment: No *Physical Exam - Vital Signs Last Vital Signs Temp Pulse Resp BP Pulse Ox 98.7 F 76 19 128/67 99 06/15/19 23:17 06/15/19 23:17 06/15/19 23:17 06/15/19 23:17 06/15/19 23:17 ED Treatment Course - LABORATORY CBC & Chemistry Diagram: 06/16/19 01:25 06/16/19 01:25 Medical Decision Making - Medical Decision Making 06/16/19 02:19 Pelvic: open os, no active bleeding, blood plus clots in vault, no discharge, no parts Pain resolved, only minor bleeding since arrival. 06/16/19 02:38 US: demise O+ D/c, f/u Discharge - Discharge Information Problems reviewed: Yes Clinical Impression/Diagnosis: demise Condition: Improved Disposition: HOME - Admission No - Follow up/Referral - Patient Discharge Instructions Patient Printed Discharge Instructions: DI for Miscarriage Additional Instructions: You have been seen in the Emergency Department for vaginal bleeding. Your ultrasound, pelvic exam, and labs show that you were but there is no heart beat. You are having a miscarriage. You will need follow-up with your Waiter/Waitress Counter to monitor it. Follow-up with your Waiter/Waitress Counter within 72 hours. Return to the Emergency Department immediately if you experience any new or concerning symptom including passing out, fever, severe abdominal pain not controlled by tylenol or ibuprofen, bleeding that fills 2 pads or more in 1 hour , or vomiting. - Post Discharge Activity
--- NOTE | 2019-06-16 01:34 | PDOC ---
Documentation entered by Iveth Hall SCRIBE, acting as scribe for Rianna Beck DO. Rianna Beck, DO: This documentation has been prepared by the Isabel taveras Joy, SCRIBE, under my direction and personally reviewed by me in its entirety. I confirm that the documentation accurately reflects all work, treatment, procedures, and medical decision making performed by me. Attending Attestation - Resident Resident Name: Radha Wells - ED Attending Attestation I have performed the following: I have examined & evaluated the patient, The case was reviewed & discussed with the resident, I agree w/resident's findings & plan, Exceptions are as noted - HPI HPI: 06/16/19 01:34 The patient is a 34 year old female , (12 weeks ) with significant past medical history of asthma who presents to the ED with vaginal bleeding and lower back pain since last night. The patient reports that she has gone through 4 pads today and that there is only red blood with no clots similar to her regular menstrual cycle. Patient adds that her LMP was February 2019. The patient denies any belly cramping. Allergies: Penicillins - Physicial Exam PE: 06/16/19 01:31 Gen: aaox3, nad heart: +s1s2 reg lungs: cta b/l abd: soft, nt/nd +bs, +b/l CVA ttp ext: no c/c/e - Medical Decision Making 06/16/19 01:32 a/p: 34yo female with vaginal bleeding and lbp since yesterday -pt is at about 12 weeks gestation -pt states 4 pads today- BRB no clots -no abd cramping -pt states pain and bleeding started after an argument last night -concern for threatened ab -will send labs, tvus -will monitor and reassess -pelvic exam per resident 06/16/19 02:04 h/h pending pt pending beta and tvus- prelim read no fhr, fetus measures 8w4d, suspected failed preg and expectant management for miscarriage 06/16/19 02:05 pt is O+
[2019-06-16 01:41] LABS: BASO % 0.7 % (0-2.0); EOS % 4.4 % (0-4.5); HEMOGLOBIN 13.8 GM/dL (10.7-15.3); MCH 28.5 pg (25.7-33.7); MCHC 33.6 g/dl (32.0-36.0); MEAN PLT VOLUME 9.1 fl (7.5-11.1); MONO % 5.9 % (3.8-10.2); PLATELET COUNT 251 K/MM3 (134-434); RBC 4.82 M/mm3 (3.60-5.2)
[2019-06-16 01:45] LABS: EPI CELLS 7.8 /HPF (0-5/HPF); HYALINE CASTS 8 /lpf (0-8); URINE APPEARANCE CLOUDY; URINE BACTERIA 133.3 /hpf (NEGATIVE); URINE BILIRUBIN NEGATIVE (NEGATIVE); URINE COLOR YELLOW; URINE GLUCOSE (UA) NEGATIVE (NEGATIVE); URINE KETONE TRACE (NEGATIVE); URINE LEUK ESTERASE NEGATIVE (NEGATIVE); URINE NITRITE NEGATIVE (NEGATIVE); URINE PROTEIN TRACE (NEGATIVE); URINE RBC 84 /hpf (0-4); URINE UROBILINOGEN 0.2 mg/dL (0.2-1.0); URINE WBC 4 /hpf (0-5)
[2019-06-16 02:17] LABS: ALBUMIN 3.8 g/dl (3.4-5.0); BILIRUBIN,TOTAL 0.2 mg/dL (0.2-1); BLOOD UREA NITROGEN 10.8 mg/dL (7-18); CALCIUM 9.4 mg/dL (8.5-10.1); CREATININE 0.6 mg/dL (0.55-1.3); POTASSIUM 4.1 mmol/L (3.5-5.1); TOT PROT 7.7 g/dl (6.4-8.2)
[2019-06-16 03:00] VITALS: BP 125/64; PULSE 72; TEMP 98.2
== END 2019-06-16 03:03 | disposition home or self-care (01) ==
LOC: JER 23:08
DX: O26.891 Other specified pregnancy related conditions, first trimester (principal); O02.1 Missed abortion; Z3A.12 12 weeks gestation of pregnancy
CPT/HCPCS: 36415; 76817-TC; 80053; 81003; 84702; 85025; 86850; 86900; 86901; 87086; 99283-25

== ENCOUNTER 2021-03-25 22:29 | Emergency (ER) | payer OTHER ==
[2021-03-25 22:53] VITALS: BMI 31.2
[2021-03-25] MEDS ORDERED: methylPREDNISolone NA SUCC 125 MG/2 ML VIAL IVPB ONE (23:36)
[2021-03-25] MEDS ORDERED: ALBUTEROL SO4 2.5/IPRATROPIUM 0.5 INH SOL 3 ML VIAL.NEB. NEB ONE (23:36)
[2021-03-26] MEDS ORDERED: methylPREDNISolone NA SUCC 125 MG/2 ML VIAL ONE (00:08)
[2021-03-26] MEDS ORDERED: MAGNESIUM 1GM/D5W - 1 GM/100 ML IVPB IVPB ONE (00:08)
[2021-03-26 00:31] LABS: MCH 27.4 pg (25.7-33.7); MCHC 33.5 g/dl (32.0-36.0); MEAN CELL VOLUME 81.8 fl (80-96); MEAN PLT VOLUME 8.6 fl (7.5-11.1); PLATELET COUNT 292 10^3/uL (134-434); RBC 4.76 M/mm3 (3.60-5.2); RDW 14.9 % (11.6-15.6); WHITE BLOOD COUNT 15.5 K/mm3 (4.0-10.0)
[2021-03-26] MEDS ORDERED: ALBUTEROL SO4 2.5/IPRATROPIUM 0.5 INH SOL 3 ML VIAL.NEB. NEB ONE (00:46)
[2021-03-26 00:52] LABS: CALCIUM 8.5 mg/dL (8.5-10.1)
[2021-03-26 00:53] LABS: ALBUMIN 3.6 g/dl (3.4-5.0); BLOOD UREA NITROGEN 19.5 mg/dL (7-18); MAGNESIUM 2.1 mg/dL (1.8-2.4)
[2021-03-26 00:56] LABS: CREATININE 0.8 mg/dL (0.55-1.3)
[2021-03-26 00:57] LABS: BILIRUBIN,TOTAL 0.3 mg/dL (0.2-1); TOT PROT 7.2 g/dl (6.4-8.2)
[2021-03-26] MEDS ORDERED: ALBUTEROL SO4 HFA INHALER IH ONE (01:28)
[2021-03-26 02:03] VITALS: BP 138/79; PULSE 80; TEMP 98.2
[2021-03-26 07:08] LABS: ANISOCYTOSIS 1+; HOWELL-JOLLY BODIES 1+; MACROCYTOSIS 0; PLATELET ESTIMATE NORMAL
== END 2021-03-26 02:03 | disposition home or self-care (01) ==
LOC: JER 22:29
PROC: 3E0F7GC Introduction of Other Therapeutic Substance into Respiratory Tract, Via Natural or Artificial Opening (ICD-10-PCS; principal; 2021-03-25)
PROC: 3E033NZ Introduction of Analgesics, Hypnotics, Sedatives into Peripheral Vein, Percutaneous Approach (ICD-10-PCS; 2021-03-25)
PROC: 3E033GC Introduction of Other Therapeutic Substance into Peripheral Vein, Percutaneous Approach (ICD-10-PCS; 2021-03-25)
DX: J45.41 Moderate persistent asthma with (acute) exacerbation (principal)
CPT/HCPCS: 36415; 80053; 83735; 85025; 94640; 96365; 96375; 99284-25; C9803; U0003; U0005

== ENCOUNTER 2024-04-14 21:49 | Emergency (ER) | payer OTHER ==
[2024-04-14 21:59] VITALS: TEMP 98.6; BMI 29.7
[2024-04-14] MEDS ORDERED: ALBUTEROL SO4 2.5/IPRATROPIUM 0.5 INH SOL 3 ML VIAL.NEB. NEB ONE (22:06)
[2024-04-14] MEDS ORDERED: DEXAMETHASONE SOD PHOSPHATE 10 MG/1 ML VIAL ONE (22:18)
[2024-04-14] MEDS ORDERED: MAGNESIUM SULFATE IN WATER 2 GM/50 ML IVPB IVPB ONE (22:18)
[2024-04-14] MEDS: ALBUTEROL SO4 2.5/IPRATROPIUM 0.5 INH SOL 3 ML VIAL.NEB. NEB ONE (22:18)
[2024-04-14] MEDS: MAGNESIUM SULFATE IN WATER 2 GM/50 ML IVPB IVPB ONE (22:33)
[2024-04-14] MEDS: DEXAMETHASONE SOD PHOSPHATE 10 MG/1 ML VIAL IVPUSH ONE (22:33)
[2024-04-14 23:12] LABS: HEMATOCRIT 38.4 % (32.4-45.2); HEMOGLOBIN 12.8 GM/dL (10.7-15.3); MCHC 33.2 g/dl (32.0-36.0); MEAN CELL VOLUME 84.2 fl (80-96); MEAN PLT VOLUME 8.9 fl (7.5-11.1); PLATELET COUNT 378 10^3/uL (134-434); RBC 4.56 M/mm3 (3.60-5.2); RDW 14.6 % (11.6-15.6)
[2024-04-14 23:24] LABS: VENOUS BASE EXCESS -1.4 mmol/L (-2-2); VENOUS O2 SATURATION 94.4 % (70-80); VENOUS PCO2 35.3 mmHg (38-52); VENOUS PH 7.422 (7.310-7.410)
[2024-04-14 23:28] LABS: POTASSIUM 3.8 mmol/L (3.5-5.1)
[2024-04-14 23:30] LABS: ALBUMIN 3.8 g/dl (3.4-5.0); BLOOD UREA NITROGEN 8.7 mg/dL (7-18); CALCIUM 9.4 mg/dL (8.5-10.1); MAGNESIUM 1.9 mg/dL (1.8-2.4)
[2024-04-14 23:33] LABS: CREATININE 0.9 mg/dL (0.55-1.3)
[2024-04-14 23:35] LABS: BILIRUBIN,TOTAL 0.3 mg/dL (0.2-1); TOT PROT 7.5 g/dl (6.4-8.2)
[2024-04-14 23:56] LABS: ANISOCYTOSIS 0; HELMET CELLS 0; HOWELL-JOLLY BODIES 0; MACROCYTOSIS 0; OVALOCYTE 0; ROULEAU 0; SICKELED CELLS 0; TARGET CELLS 0; TEAR DROP CELLS 0; TOXIC GRANULATION 0
[2024-04-15 00:04] VITALS: BP 150/76; PULSE 90; RESP 18
[2024-04-15 00:22] LABS: HIV INTERPRETATION NEGATIVE (NEGATIVE)
== END 2024-04-15 00:02 | disposition home or self-care (01) ==
LOC: JER 21:49
PROC: 3E033GC Introduction of Other Therapeutic Substance into Peripheral Vein, Percutaneous Approach (ICD-10-PCS; principal; 2024-04-14)
PROC: 3E033GC Introduction of Other Therapeutic Substance into Peripheral Vein, Percutaneous Approach (ICD-10-PCS; 2024-04-14)
PROC: 3E0F7GC Introduction of Other Therapeutic Substance into Respiratory Tract, Via Natural or Artificial Opening (ICD-10-PCS; 2024-04-14)
DX: J45.901 Unspecified asthma with (acute) exacerbation (principal); R06.02 Shortness of breath; R05.9 Cough, unspecified; R00.0 Tachycardia, unspecified; Z20.822 Contact with and (suspected) exposure to COVID-19
CPT/HCPCS: 0241U-QW; 36415; 71045-TC-FY; 80053; 82803; 83735; 85025; 86803; 87389; 99284-25; J1100